=== PATIENT | female | born 1960 | race Caucasian/White ===

== ENCOUNTER 2021-06-20 12:26 | Emergency (ER) | payer OTHER ==
[~2021-06-20] VITALS: Ht 165.1 cm; Wt 92.1 kg
[2021-06-20] MEDS ORDERED: SODIUM CHLORIDE 0.9% 1,000 ML IVB ONE (13:45)
[2021-06-20 15:20] LABS: Basophils # (auto) 0 10 ^3/uL (0-0.2); Basophils % (auto) 0.6 % (0.0-2.0); Eosinophils # (auto) 0 10 ^3/uL (0-0.8); Eosinophils % (auto) 0.5 % (0.0-7.0); Hematocrit 37.5 % (36.0-46.0); Hemoglobin 12.4 g/dL (12.2-16.2); Lymphocytes # (auto) 1.6 10 ^3/uL (0.4-5.4); Lymphocytes % (auto) 18.9 % (10.0-50.0); Mean Corpuscular Hemoglobin 31.1 pg (28.0-32.0); Mean Corpuscular Hgb Conc. 33.1 g/dL (32.0-36.0); Mean Corpuscular Volume 93.8 fL (80.0-100.0); Monocytes # (auto) 0.7 10 ^3/uL (0-1.3); Monocytes % (auto) 7.9 % (0.0-12.0); Neutrophils % (auto) 72.1 % (37.0-80.0); Red Cell Distribution Width 14.7 % (11.8-14.3); White Blood Cell 8.3 10^3/uL (4.4-10.8)
[2021-06-20 15:46] LABS: Anion Gap 5 (5-15); Blood Urea Nitrogen 17 mg/dL (7-18); Calcium 8.5 mg/dL (8.5-10.1); Carbon Dioxide 28 mmol/L (21-32); Chloride 102 mmol/L (98-107); Glucose 89 mg/dL (74-106); Sodium 135 mmol/L (136-145)
[2021-06-20 15:49] LABS: INR 1.08 (0.9-1.15); Partial Thromboplastin Time 24.8 sec (23.6-33.0)
[2021-06-20 15:52] LABS: Alanine Aminotransferase 54 U/L (13-56); Alkaline Phosphatase 97 U/L (45-117); Aspartate Aminotransferase 22 U/L (15-37); BUN/Creatinine Ratio 27.4; Bilirubin, Total 0.3 mg/dL (0.2-1.0); GFR African American 126 mL/min; GFR Non-African American 104 mL/min; Total Protein 6.8 g/dL (6.4-8.2)
[2021-06-20 17:28] VITALS: BP 122/56
== END 2021-06-20 16:26 | disposition short-term general hospital (02) ==
LOC: ER 12:26 → EDBD 12:26 → ER 16:26
DX: R60.9 Edema, unspecified (principal); J84.10 Pulmonary fibrosis, unspecified; E27.40 Unspecified adrenocortical insufficiency; Z74.01 Bed confinement status; Z91.041 Radiographic dye allergy status; Z20.828 Contact with and (suspected) exposure to other viral communicable diseases
CPT/HCPCS: 36415; 71045; 80053; 83735; 83880; 84443; 84484; 85025; 85610; 85730; 87426; 93005; 96360; 96361; 99285; J7030

== ENCOUNTER 2025-01-12 09:43 | Emergency (ER) | payer OTHER ==
[~2025-01-12] VITALS: Ht 160 cm; Wt 100.0 kg
--- NOTE | 2025-01-12 10:38 | ED.PDOC ---
History of Present Illness HPI Comments 64-year-old female with a history of secondary adrenal insufficiency an multiple other medical problems brought in by EMS from home complaining of hot and cold flashes for the last 2-3 days. Patient states she is concerned that she may be developing an infection, which may precipitate an adrenal crisis. She also reports chest tightness intermittently over the past 2-3 days, shortness of breath and bilateral foot edema. She denies any fever, pain, nausea, vomiting, diarrhea, dysuria, skin discoloration or sick contacts. Chief Complaint: Chest Pain Time Seen by MD: 10:20 Reviewed Notes: Nurses Notes, Medications, Allergies Allergies: Coded Allergies: Iodine (Verified Allergy, Unknown, 06/20/21) Information Source: Patient Mode of Arrival: EMS Severity: Moderate Timing: Days Duration: Since onset, Days Prehospital treatment: None Past Medical History PAST MEDICAL HISTORY: Anxiety, Depression, HTN, Thyroid (HYPO) Past Medical History (Other): Adrenal insufficiency secondary to radiation treatments due to a pituitary tumor, SVT, hypotension, hyponatremia, hypoglycemia, hypothyroid, restrictive lung disease, severe scoliosis, oxygen dependent at 2 L Surgical History: Pacemaker Surgical History (Other): Pituitary Tumor Sx HEAD SAWYER History: No Pertinent HEAD SAWYER History Family History Family History: Reviewed,noncontributory to illness, Unknown, Family hx of HTN Social History Smoker: Non-Smoker Alcohol: Denies ETOH Use Drugs: Denies Drug Use Lives In: Home Constitutional: denies: chills, diaphoresis, fatigue, fever, malaise, sweats, weakness, others EENTM: denies: blurred vision, double vision, ear bleeding, ear discharge, ear drainage, ear pain, ear ringing, eye pain, eye redness, hearing loss, mouth pain, mouth swelling, nasal discharge, nose bleeding, nose congestion, nose pain, photophobia, tearing, throat pain, throat swelling, voice changes, others Respiratory: reports: shortness of breath; denies: cough, hemoptysis, orthopnea, SOB at rest, SOB with excertion, stridor, wheezing, others Cardiovascular: reports: chest pain; denies: dizzy spells, diaphoresis, Dyspnea on exertion, edema, irregular heart beat, left arm pain, lightheadedness, palpitations, PND, syncope, others Gastrointestinal: denies: abdomen distended, abdominal pain, blood streaked bowels, constipated, diarrhea, dysphagia, difficulty swallowing, hematemesis, melena, nausea, poor appetite, poor fluid intake, rectal bleeding, rectal pain, vomiting, others Genitourinary: denies: abnormal vagina bleeding, burning, dyspareunia, dysuria, flank pain, frequency, hematuria, incontinence, pain, , vagina discharge, urgency, others Neurological: denies: dizziness, fainting, headache, left sided numbness, left sided weakness, numbness, paresthesia, pre-existing deficit, right sided numbness, right sided weakness, seizure, speech problems, tingling, tremors, weakness, others Musculoskeletal: denies: back pain, gout, joint pain, joint swelling, muscle pain, muscle stiffness, neck pain, others Integumetry: denies: bruises, change in color, change in hair/nails, dryness, laceration, lesions, lumps, rash, wounds, others Allergic/Immunocompromised: denies: Difficulty Healing, Frequent Infections, Hives, Itching, others Hematologic/Lymphatic: denies: anemia, blood clots, easy bleeding, easy bruising, swollen glands, others Endocrine: denies: excessive hunger, excessive sweating, excessive thirst, excessive urination, flushing, intolerance to cold, intolerance to heat, unexplained weight gain, unexplained weight loss, others Psychiatric: denies: anxiety, bipolar disorder, depression, hopeless, panic disorder, schizophrenia, sleepless, suicidal, others All Other Systems: Reviewed and Negative Physical Exam General Appearance: No Apparent Distress, Obese HEENT: Other (Pupils and face symmetric. Moist mucous membranes.) Neck: Full Range of Motion, Normal Inspection Respiratory: Decreased Breath Sounds, No Accessory Muscle Use, Respiratory Distress (Mild) Cardiovascular: No JVD, Regular Rate/Rhythm Breast Exam: Deferred Gastrointestinal: Non Tender, Soft Genitalia: Deferred Pelvic: Deferred Rectal: Deferred Extremities: Non-tender, Pedal edema (Trace) Musculoskeletal : Apperance: Normal Neurologic: Alert (Oriented x4), Normal Affect, Other (Anxious. Moves all extremities.) Cerebellar Function: NOT DONE Reflexes: NOT DONE Skin: Dry, Normal Color, Warm Lymphatic: NOT DONE Was a procedure done? Was a procedure done?: No EKG EKG : Comments Atrial paced rhythm, rate 70, normal intervals, normal axis, normal QRS, nonspecific T changes. Differential Dx Considerations may include: ACS, PR, anxiety, arrhythmia, URI, viral syndrome, bronchitis, pneumonia, UTI, CHF, electrolyte imbalance, adrenal crisis, among others X-Ray, Labs, Meds, VS Vital Signs Date Time Temp Pulse Resp B/P (MAP) Pulse Ox O2 Delivery O2 Flow Rate FiO2 01/12/25 17:00 70 13 119/53 (75) 100 01/12/25 16:00 70 20 119/54 (75) 100 01/12/25 16:00 70 01/12/25 14:07 70 16 107/37 (60) 100 01/12/25 13:00 70 16 116/52 (73) 100 01/12/25 12:41 97.9 70 16 116/52 (73) 100 97.9 01/12/25 12:00 70 01/12/25 11:26 100 Nasal Cannula* 2 28 01/12/25 11:04 98.1 98.1 01/12/25 11:04 70 16 114/52 (72) 100 01/12/25 11:00 70 01/12/25 10:46 70 19 129/40 (69) 100 01/12/25 10:45 100 Nasal Cannula* 3 32 01/12/25 10:05 70 01/12/25 09:56 97.8 84 18 138/68 (91) 97 97.8 Lab Test 01/12/25 14:09 01/12/25 12:25 01/12/25 11:25 01/12/25 10:30 Range/Units Influenza Type A Antigen Negative Negative Influenza Type B Antigen Negative Negative SARS-CoV-2 Antigen (Rapid) Negative NEGATIVE Urine Color Light-yellow Yellow Urine Clarity Clear Clear Urine pH 7.0 5.0-9.0 Urine Specific [place] 1.019 1.001-1.035 Urine Protein Negative Negative Urine Ketones Negative Negative Urine Blood Negative Negative /uL Urine Nitrite Negative Negative Urine Bilirubin Negative Negative Urine Urobilinogen Normal Negative mg/dL Urine Leukocyte Esterase Trace Negative /uL Urine RBC 2 0 - 4 /hpf Urine Microscopic WBC 4 0-5 /HPF Urine Squamous Epithelial Cells Few <5 /hpf Urine Bacteria None seen None Seen /hpf Urine Glucose Normal Normal mg/dL Lactic Acid Level 1.4 0.4-2.0 mmol/L Troponin I High Sensitivity 6 </=34 ng/L White Blood Count 6.9 4.4-10.8 10^3/uL Red Blood Count 4.15 4.0-5.20 10^6/uL Hemoglobin 12.6 12.2-16.2 g/dL Hematocrit 38.6 36.0-46.0 % Mean Corpuscular Volume 93.2 80.0-100.0 fL Mean Corpuscular Hemoglobin 30.3 28.0-32.0 pg Mean Corpuscular Hemoglobin Concent 32.5 32.0-36.0 g/dL Red Cell Distribution Width 14.9 H 11.8-14.3 % Platelet Count 219 140-450 10^3/uL Mean Platelet Volume 7.7 6.9-10.8 fL Neutrophils (%) (Auto) 71.5 37.0-80.0 % Lymphocytes (%) (Auto) 18.1 10.0-50.0 % Monocytes (%) (Auto) 9.2 0.0-12.0 % Eosinophils (%) (Auto) 0.7 0.0-7.0 % Basophils (%) (Auto) 0.5 0.0-2.0 % Neutrophils # (Auto) 4.9 1.6-8.6 10 ^3/uL Lymphocytes # (Auto) 1.2 0.4-5.4 10 ^3/uL Monocytes # (Auto) 0.6 0-1.3 10 ^3/uL Eosinophils # (Auto) 0 0-0.8 10 ^3/uL Basophils # (Auto) 0 0-0.2 10 ^3/uL Nucleated Red Blood Cells 0.1 % Sodium Level 134 L 136-145 mmol/L Potassium Level 3.9 3.5-5.1 mmol/L Chloride Level 96 L 98-107 mmol/L Carbon Dioxide Level 35 H 20-31 mmol/L Anion Gap 3 L 5-15 Blood Urea Nitrogen 17 9-23 mg/dL Creatinine 0.68 0.550-1.02 mg/dL Glomerular Filtration Rate Calc 97 >90 mL/min BUN/Creatinine Ratio 25.0 H 10.0-20.0 Serum Glucose 93 74-106 mg/dL Calcium Level 9.8 8.7-10.4 mg/dL Total Bilirubin 0.4 0.2-1.0 mg/dL Aspartate Amino Transferase (AST) 31 13-40 U/L Alanine Aminotransferase (ALT) 49 H 7-40 U/L Alkaline Phosphatase 70 46-116 U/L B-Type Natriuretic Peptide 50.03 0-100 pg/mL Total Protein 6.7 5.7-8.2 g/dL Albumin 4.3 3.2-4.8 g/dL Test 01/12/25 10:03 Range/Units Troponin I High Sensitivity 6 </=34 ng/L Current Medications Medications (Trade) Dose Ordered Sig/Gabbie Route Start Time Stop Time Status Last Admin Acetaminophen/ Hydrocodone Bitart (Landrum 5/325MG Tab) 1 tab ONCE ONCE PO 01/12/25 13:00 01/12/25 13:05 DC 01/12/25 13:09 PROCEDURE(s): CXRP - CHEST PORTABLE REASON: sob ORDER NUMBER(s): [id number], ACCESSION NUMBER(s): [id number] Procedure: XY CHEST PORTABLE 01/12/2025 10:36 AM Indication: sob Comparison: CHEST PORTABLE on DOS: 06/20/21 TECHNIQUE: XY CHEST PORTABLE FINDINGS: Medical devices: None. Cardiomediastinal: The heart is mildly enlarged. Pulmonary vasculature is within normal limits. A dual lead pacemaker is seen in the right upper chest wall with leads extending to the right cardiac chambers. Lungs: Limited low lung volume examination. No lobar consolidation The costophrenic angles are clear. No pneumothorax. Bones/soft tissues: No acute abnormality is noted. IMPRESSION: 1. No acute cardiopulmonary disease. Limited low lung volume examination. X-Ray, Labs, Meds, VS Comment 64-year-old female with a history of adrenal insufficiency and multiple additional medical problems brought in by EMS from home complaining of hot and cold flashes, chest pressure and shortness of breath Vitals remarkable for BP 124/40 Exam remarkable for diminished breath sounds at the lung bases and mild respiratory distress Rhythm strip independently interpreted by me: Atrial paced rhythm, rate 70, no ectopy. Chest x-ray IMPRESSION: 1. No acute cardiopulmonary disease. Limited low lung volume examination. CBC unremarkable, CMP remarkable for sodium 134, chloride 96, CO2 35, BNP normal, troponin negative x2, lactate normal, UA unremarkable, influenza and COVID negative Patient treated with the following in the ED: Landrum 5/325 mg p.o. x2 Hospitalization was considered, however workup was unremarkable, and patient was resting comfortably on re-evaluation. I no longer feel hospitalization is necessary. Patient now appears stable for discharge with close outpatient follow-up with her primary physician. Patient's son arrived at bedside and reported that he and his girlfriend who l park with the patient have both been experiencing viral URI symptoms including cough and congestion. Case discussed with Dr. Dunn at [facility], who contacted Dr. Davis, bike assembler for consultation. Recommendation was to double the patient's hydrocortisone at home for the next 2 days and contact her bike assembler Dr. Galindo for an appointment within the next 2 days. Patient also states she has a video appointment with her primary doctor tomorrow. Authorization [id number] Time of 1ST Reevaluation: 10:50 Reevaluation 1ST: Unchanged Patient Education/Counseling: Diagnosis, Treatment, Prognosis Family Education/Counseling: No Family Present Departure 1 Departure Time of Disposition: 16:51 Impression: Primary Impression: Viral syndrome Disposition: 01 HOME / SELF CARE / HOMELESS Condition: Stable Additional Instructions: Double your home dose of hydrocortisone for the next 2 days. Follow-up with your primary doctor tomorrow as scheduled. Contact your bike assembler for a follow-up appointment in 1-2 days. Discharged With: Relative Critical Care Note Critical Care Time?: No Stability Stability form required: No Heart Score Heart Score: Heart Score Response (Comments) Value History Slightly Suspicious 0 EKG Repolarization Disturb 1 Age >65 2 Risk Factors 1 or 2 risk factors 1 Troponin Normal limit 0 Total 4 I personally scribed for VERONICA SANTOS MD ([email or web address]) on 01/12/25 at 10:38. Electronically submitted by Gilberto Austin ([employer] I personally scribed for VERONICA SANTOS MD ([email or web address]) on 01/12/25 at 17:39. Electronically submitted by Gilberto Austin ([email or web address]). I personally scribed for VERONICA SANTOS MD ([email or web address]) on 01/12/25 at 17:40. Electronically submitted by Gilberto Austin ([employer] VERONICA SANTOS MD Jan 12, 2025 10:38
[2025-01-12 10:45] VITALS: O2SAT 100
--- NOTE | 2025-01-12 11:31 | DVH ---
Procedure: XY CHEST PORTABLE 01/12/2025 10:36 AM Indication: sob Comparison: CHEST PORTABLE on DOS: 06/20/21 TECHNIQUE: XY CHEST PORTABLE FINDINGS: Medical devices: None. Cardiomediastinal: The heart is mildly enlarged. Pulmonary vasculature is within normal limits. A rhonda l lead pacemaker is seen in the right upper chest wall with leads extending to the right cardiac jj bers. Lungs: Limited low lung volume examination. No lobar consolidation The costophrenic angles are clear. No pneumothorax. Bones/soft tissues: No acute abnormality is noted. IMPRESSION: 1. No acute cardiopulmonary disease. Limited low lung volume examination.
[2025-01-12 11:43] LABS: Basophils # (auto) 0 10 ^3/uL (0-0.2); Basophils % (auto) 0.5 % (0.0-2.0); Eosinophils # (auto) 0 10 ^3/uL (0-0.8); Eosinophils % (auto) 0.7 % (0.0-7.0); Hematocrit 38.6 % (36.0-46.0); Hemoglobin 12.6 g/dL (12.2-16.2); Lymphocytes # (auto) 1.2 10 ^3/uL (0.4-5.4); Lymphocytes % (auto) 18.1 % (10.0-50.0); Mean Corpuscular Hemoglobin 30.3 pg (28.0-32.0); Mean Corpuscular Hgb Conc. 32.5 g/dL (32.0-36.0); Mean Corpuscular Volume 93.2 fL (80.0-100.0); Monocytes # (auto) 0.6 10 ^3/uL (0-1.3); Monocytes % (auto) 9.2 % (0.0-12.0); Neutrophils # (auto) 4.9 10 ^3/uL (1.6-8.6); Neutrophils % (auto) 71.5 % (37.0-80.0); Nucleated Red Blood Cells % 0.1 %; Platelet Count (auto) 219 10^3/uL (140-450); Red Blood Cells 4.15 10^6/uL (4.0-5.20); Red Cell Distribution Width 14.9 % (11.8-14.3); White Blood Cell 6.9 10^3/uL (4.4-10.8)
[2025-01-12 12:04] LABS: Albumin 4.3 g/dL (3.2-4.8); Alkaline Phosphatase 70 U/L (46-116); Anion Gap 3 (5-15); Aspartate Aminotransferase 31 U/L (13-40); Blood Urea Nitrogen 17 mg/dL (9-23); Calcium 9.8 mg/dL (8.7-10.4); Glucose 93 mg/dL (74-106); Potassium 3.9 mmol/L (3.5-5.1); Total Protein 6.7 g/dL (5.7-8.2)
[2025-01-12 12:05] LABS: Bilirubin, Total 0.4 mg/dL (0.2-1.0)
[2025-01-12 12:06] LABS: Alanine Aminotransferase 49 U/L (7-40); Carbon Dioxide 35 mmol/L (20-31); Chloride 96 mmol/L (98-107); Sodium 134 mmol/L (136-145)
[2025-01-12 12:36] LABS: Urine Bacteria None Seen /hpf (None Seen)
[2025-01-12 12:40] LABS: Urine Blood Negative /uL (Negative); Urine Clarity Clear (Clear); Urine Color Light-Yellow (Yellow); Urine Protein, UAD Negative (Negative); Urine Specific Gravity 1.019 (1.001-1.035); Urine Squamous Epithelial Cell FEW /hpf (<5); Urine Urobilinogen Normal (Negative); Urine WBC 4 /HPF (0-5)
[2025-01-12 12:41] VITALS: TEMP 97.9
[2025-01-12] MEDS: HYDROcodone-ACET 5/325MG TAB PO ONE ×2 (13:09→18:00)
[2025-01-12 15:16] LABS: Rapid Influenza A Negative (Negative); Rapid Influenza B Negative (Negative)
[2025-01-12 15:17] LABS: COVID19 ANTIGEN SOFIA FIA NEGATIVE (NEGATIVE)
[2025-01-12 18:09] VITALS: BP 131/57; PULSE 70; RESP 14; O2SAT 98
--- NOTE | 2025-01-12 18:38 | ECG ---
[facility] Test Date: 2025-01-12 Test Time: 09:48:06 Pat Name: ANGELIA OWEN Department: ED Room: Gender: F Museum Attendant: ELIOT : 1960 Requested By: VERONICA LOMAS Order Number: [id number] Reading MD: Andrew Barnett Measurements Intervals [place] Rate: 70 P: 43 LA: 191 QRS: 3 QRSD: 108 T: 34 QT: 392 QTc: 423 Interpretive Statements Normal sinus rhythm Low voltage, precordial leads Borderline T abnormalities, anterior leads Electronically Signed On 01-13-2025 8:36:33 PDT by Andrew Barnett Please click the below link to view image of tracing.
== END 2025-01-12 18:16 | disposition home or self-care (01) ==
LOC: EDBD 09:43 → ER 09:43
DX: B34.9 Viral infection, unspecified (principal); I10 Essential (primary) hypertension; F41.9 Anxiety disorder, unspecified; F32.A Depression, unspecified; E03.9 Hypothyroidism, unspecified; Z20.822 Contact with and (suspected) exposure to COVID-19; Z95.0 Presence of cardiac pacemaker; Z91.041 Radiographic dye allergy status
CPT/HCPCS: 36415; 71045; 80053; 81001; 83605; 83880; 84484; 85025; 87040; 87086; 87426; 87804; 93005